=== PATIENT | female | born 1975 | race Caucasian/White ===

== ENCOUNTER 2018-05-10 12:37 | Emergency (ER) | payer MEDICAID ==
[~2018-05-10] VITALS: Ht 180.3 cm; Wt 72.6 kg
[2018-05-10 13:29] LABS: Source, Urine Voided
[2018-05-10 13:39] LABS: Appearance, Urine Cloudy (Clear); Bilirubin, Urine Neg (Neg); Blood, Urine 4+ (Neg); Color, Urine Yellow (P-Yellow); Glucose Qualitative, Urine Neg (Neg); Ketones, Urine Neg (Neg); Leukocyte Esterase, Urine 3+ (Neg); Nitrite, Urine Neg (Neg); Protein, Urine 3+ (Neg); Urobilinogen, Urine NORM (Normal)
[2018-05-10 13:50] LABS: Squamous Epithelial Cells Rare /hpf (Few)
[2018-05-10 13:51] LABS: Bacteria Mod /hpf; White Blood Cells, Urine 25-50 /hpf (0-5)
== END 2018-05-10 15:35 | disposition home or self-care (01) ==
LOC: ER 12:37
PROVIDERS: Emergency Medicine
DX: S46.911A Strain of unspecified muscle, fascia and tendon at shoulder and upper arm level, right arm, initial encounter (principal); N39.0 Urinary tract infection, site not specified; Z11.3 Encounter for screening for infections with a predominantly sexual mode of transmission; X58.XXXA Exposure to other specified factors, initial encounter
CPT/HCPCS: 81001; 87077; 87086; 87186; 96374; 96375; 99284-25; J1885; J2405